=== PATIENT | female | born 1955 | race Asian ===

== ENCOUNTER 2017-01-19 12:14 | Outpatient (CLI) | payer BC ==
--- NOTE | 2017-01-19 15:05 | BD ---
DEXA DENSITOMETRY: HISTORY: A 61-year-old female for postmenopausal osteoporosis screening. FINDINGS: LUMBAR SPINE BMD (g/cm2) T-SCORE L1 0.681 -2.8 L2 0.819 -1.9 L3 0.777 -2.8 L4 0.771 -2.6 TOTAL 0.764 -2.6 Bone mineral density of the lumbar spine from the prior exam of 09/06/2014 is recorded at 0.768. FEMORAL NECK DENSITY 0.588 -2.4 TOTAL 0.862 -0.7 Femoral neck density from 09/06/2014 recorded at 0.586. IMPRESSION: 1. Bone mineral density of the lumbar spine continues to show osteoporosis. Minimal change since pr ior exam. 2. Bone mineral density of the femoral neck continues to show osteopenia. Minimal change since prio r exam. POS: PETE
== END 2017-01-19 12:15 | disposition home or self-care (01) ==
LOC: MAMMO 12:14
PROVIDERS: ATTEND Family Medicine
DX: Z13.820 Encounter for screening for osteoporosis (principal); M81.0 Age-related osteoporosis without current pathological fracture; M85.88 Other specified disorders of bone density and structure, other site
CPT/HCPCS: 77080

== ENCOUNTER 2017-08-31 13:17 | Outpatient (CLI) | payer BC ==
--- NOTE | 2017-08-31 14:06 | MMO ---
BILATERAL DIGITAL SCREENING MAMMOGRAMS: Comparison: 09-06-14 FINDINGS: This study is interpreted with the assistance of computer aided detection. There are scattered fibroglandular densities. No suspicious mass or calcifications are seen. IMPRESSION: BIRADS 1 - negative. Continued annual mammographic screening recommended. POS: PETE
== END 2017-08-31 13:18 | disposition home or self-care (01) ==
LOC: SCSMAMMO 13:17
PROVIDERS: ATTEND Family Medicine
DX: Z12.31 Encounter for screening mammogram for malignant neoplasm of breast (principal)
CPT/HCPCS: 77067